=== PATIENT | male | born 1990 | race Caucasian/White ===

== ENCOUNTER 2017-06-03 20:51 | Emergency (ER) | payer OTHER ==
--- NOTE | 2017-06-03 23:42 | ED Physician Documentation ---
PD HPI UPPER EXT INJURY - Stated complaint Stated Complaint: THUMB INJURY - Chief complaint Chief Complaint: Ext Problem - History obtained from History obtained from: Patient - History of Present Illness Location: Left, Finger (thumb) Timing - onset: Today Timing - details: Abrupt onset (baseball struck thumb and bent it back, with pain at MCP.), Still present Improved by: Rest Worsened by: Moving, Palpating Associated symptoms: Swelling. No: Weakness, Numbness Similar symptoms before: Has not had sx before Recently seen: Not recently seen Review of Systems Skin: denies: Abrasion (s), Laceration (s) Neurologic: denies: Focal weakness, Numbness PD PAST MEDICAL HISTORY - Past Medical History Past Medical History: No - Past Surgical History Past Surgical History: No - Present Medications Home Medications: Ambulatory Orders Medication Instructions Recorded Confirmed Lisinopril 5 mg PO DAILY 06/03/17 06/03/17 - Allergies Allergies/Adverse Reactions: Allergies Allergy/AdvReac Type Severity Reaction Status Date / Time No Known Drug Allergies Allergy Verified 06/03/17 20:56 - Social History Does the pt smoke?: No Smoking Status: Never smoker Does the pt drink ETOH?: No Does the pt have substance abuse?: No - Immunizations Immunizations are current?: Yes PD ED PE NORMAL - Vitals Vital signs reviewed: Yes - General General: Alert and oriented X 3, Well developed/nourished - Extremities Extremities: Other (tender at dorsal and radial boom man of MCP. No laixty with UCL testing. Mild swelling of joint. ) - Neuro Neuro: No motor deficit, No sensory deficit Results - Vitals Vitals: Oxygen O2 Source Room air - Rads (name of study) thumb Radiology: Prelim report reviewed (no fractures) PD MEDICAL DECISION MAKING - ED course Complexity details: reviewed results (no fracture), considered differential ( stress of UCL does not hurt nor lax. Tender at radial side mostly. ), d/w patient Departure - Departure Disposition: 01 Home, Self Care Clinical Impression: Left thumb sprain Qualifiers: Encounter type: initial encounter Sprain of finger site: metacarpophalangeal joint Qualified Code(s): S63.642A - Sprain of metacarpophalangeal joint of left thumb, initial encounter Condition: Stable Record reviewed to determine appropriate education?: Yes Instructions: ED Sprain Finger Follow-Up: SISSY GARCIA [Primary Care Provider] - Comments: Thumb splint for a week or until fully healed. Ibuprofen 400-600 mg three times daily for pain or swelling. Limited use of the left thumb for a week. Recheck with PMD if not improved well over the next week, though it might take 2-3 weeks to fully heal up for full normal use. Discharge Date/Time: 06/04/17 00:20
--- NOTE | 2017-06-03 23:42 | XRAY Preliminary Report ---
Exam: XR Finger(s) LT IMPRESSION: 1. No acute fracture or dislocation seen. [facility] SITE ID: [id number]
--- NOTE | 2017-06-03 23:45 | XRAY Report ---
EXAM: LEFT FIRST DIGIT RADIOGRAPHY EXAM DATE: 06/03/2017 11:32 PM. CLINICAL HISTORY: Thumb injury playing basketball. COMPARISON: None. TECHNIQUE: 3 views. FINDINGS: Bones: No acute fracture seen. Joints: No dislocation. Joint spaces appear intact. Soft Tissues: Soft tissue swelling. IMPRESSION: 1. No acute fracture or dislocation seen. [facility] Referring Provider Line: [phone] SITE ID: [id number]
[2017-06-03] MEDS ORDERED: IBUPROFEN 600 MG TABLET PO STA (23:51)
[2017-06-03] MEDS ORDERED: ACETAMINOPHEN 325 MG TABLET PO STA (23:51)
[2017-06-03] MEDS ORDERED: ACETAMINOPHEN 325 MG TABLET PO ONE (23:59)
[2017-06-03] MEDS ORDERED: IBUPROFEN 600 MG TABLET PO ONE (23:59)
[2017-06-04 00:22] VITALS: BP 149/93
== END 2017-06-04 00:20 | disposition home or self-care (01) ==
LOC: ED 20:51
DX: S63.642A Sprain of metacarpophalangeal joint of left thumb, initial encounter (principal); X50.1XXA Overexertion from prolonged static or awkward postures, initial encounter; Y93.64 Activity, baseball
CPT/HCPCS: 73140; 99283; A9270